=== PATIENT | male | born 1990 | race African-American/Black ===

== ENCOUNTER 2016-04-14 09:12 | Emergency (ER) | payer SELFPAY ==
[~2016-04-14] VITALS: Ht 175.3 cm; Wt 81.6 kg
[~2016-04-14 09:12] MED LIST: DOXYCYCLINE MO100 MG ORAL; GENOPTIC O.O1 APPLIC BOTH EYES; METRONIDAZOLE500 MG ORAL; NKM; NORCO 5-325 TA1 EACH ORAL; ZITHROMAX250 MG ORAL
[2016-04-14 09:29] VITALS: BP 122/77
[2016-04-14] MEDS ORDERED: Azithromycin 250mg tab ORAL ONE (09:45)
[2016-04-14] MEDS ORDERED: SUPRAX400 M1 PO (09:52)
[2016-04-14 10:00] VITALS: BP 120/76
--- NOTE | 2016-04-15 17:34 | Emergency Room Report ---
History of Present Illness General Chief Complaint: Male Urogenital Problems Source: Patient Present Illness HPI Patient presents with complaints of discharge Reports that he has noticed some clear discharge recently he has had gonorrhea in the past Reports that he is resistant to Rocephin And requires Suprax Denies any abdominal pain denies any fevers or chills Denies any lymphadenopathy denies any testicular pain denies any vomiting or diarrhea Allergies: Coded Allergies: PEANUT (Unverified Allergy, Intermediate, 08/17/15) Uncoded Allergies: PEANUTS (Allergy, Intermediate, 08/17/15) Patient History Past Medical History: see triage record Pertinent Family History: none Reviewed Nursing Documentation: PMH: Agreed, PSxH: Agreed Nursing Documentation-PMH Past Medical History: No Stated History Review of Systems All Other Systems: negative except mentioned in HPI Physical Exam Vital Signs Date Time Temp Pulse Resp B/P Pulse Ox O2 Delivery O2 Flow Rate FiO2 04/14/16 09:29 98.4 93 18 122/77 99 Room Air Sp02 EP Interpretation: reviewed, normal General Appearance: well appearing, no apparent distress Head: normocephalic, atraumatic Eyes: bilateral eye EOMI, bilateral eye PERRL ENT: hearing grossly normal, normal pharynx, TMs + canals normal, uvula midline Neck: supple, thyroid normal Gastrointestinal: soft, no mass Genitourinary: other - Uncircumcised, testicles nontender Musculoskeletal: normal inspection Neurologic: alert, oriented x3 Skin: no rash, warm/dry Lymphatic: no adenopathy Medical Decision Making Diagnostic Impression: Primary Impression: Urethritis ER Course Patient was provided with suprax per his request At this time he understands the need for close followup with STD clinic and primary physician And will return with any changes in symptoms Last Vital Signs Date Time Temp Pulse Resp B/P Pulse Ox O2 Delivery O2 Flow Rate FiO2 04/14/16 10:00 98.4 88 16 120/76 100 Room Air Status: improved Disposition: HOME, SELF-CARE Condition: Stable Scripts Cefixime (SUPRAX) 400 Mg Capsule 400 MG PO ONCE for 1 Day, CAP Prov: MARY CAM D.OIsrrael 04/14/16 Referrals: NOT CHOSEN [facility]/,REFERRING (PCP) Patient Instructions: Urethritis, Adult Additional Instructions: Patient is provided with the discharge instructions notified to follow up with primary doctor in the next 2-3 days otherwise return to the er with any worsening symptoms. MARY CAM D.O. Apr 15, 2016 17:34
== END 2016-04-14 10:00 | disposition home or self-care (01) ==
LOC: EMR 09:53
DX: N34.2 Other urethritis (principal); Z91.010 Allergy to peanuts
CPT/HCPCS: 99282

== ENCOUNTER 2016-11-03 21:07 | Emergency (ER) | payer MEDICAID ==
[~2016-11-03] VITALS: Ht 175.3 cm; Wt 77.1 kg
[~2016-11-03 21:07] MED LIST changes: +SUPRAX400 M1 PO
[2016-11-03 21:30] VITALS: BP 130/74
--- NOTE | 2016-11-03 21:37 | Emergency Room Report ---
History of Present Illness General Chief Complaint: Male Urogenital Problems Source: Patient Present Illness HPI Is a 26-year-old male with no significant past medical history. He presents with chief complaint of possible STD. He said that he has an STD for the last 2 years. Has been on multiple antibiotics. He's been here at least 6 times her ready. This does not including outside hospital. He requested antibiotics. He has no discharge. Denies any fever chills denies any nausea vomiting. No recent sexual activity. Also complaining of generalized pain and headache. Nothing made it better. Nothing made it worse. Allergies: Coded Allergies: PEANUT (Unverified Allergy, Intermediate, 08/17/15) Uncoded Allergies: PEANUTS (Allergy, Intermediate, 08/17/15) Patient History Past Medical History: see triage record, old chart reviewed Past Surgical History: other Pertinent Family History: none Social History: Denies: smoking Immunizations: other Reviewed Nursing Documentation: PMH: Agreed, PSxH: Agreed Nursing Documentation-PM Past Medical History: No Stated History Review of Systems Eye: Denies: blurred vision, eye pain ENT: Denies: ear pain, nose congestion, throat swelling Respiratory: Denies: cough, shortness of breath Cardiovascular: Denies: chest pain, palpitations Gastrointestinal: Denies: abdominal pain, diarrhea, nausea, vomiting Musculoskeletal: Denies: back pain, joint pain Skin: Denies: rash Neurological: Denies: headache, numbness Endocrine: Denies: increased thirst, increased urine Hematologic/Lymphatic: Denies: easy bruising All Other Systems: negative except mentioned in HPI Physical Exam Vital Signs Date Time Temp Pulse Resp B/P Pulse Ox O2 Delivery O2 Flow Rate FiO2 11/03/16 21:15 99.7 84 20 127/76 98 Room Air vitals normal Sp02 EP Interpretation: reviewed, normal General Appearance: well appearing, no apparent distress, alert Head: normocephalic, atraumatic Eyes: bilateral eye EOMI, bilateral eye PERRL ENT: hearing grossly normal, normal pharynx Neck: full range of motion, supple, no meningismus Respiratory: chest non-tender, lungs clear, normal breath sounds Cardiovascular #1: regular rate, rhythm, no murmur Gastrointestinal: normal bowel sounds, non tender, no mass, no organomegaly, no bruit, non-distended Genitourinary: no CVA tenderness, no vertebral tenderness, scrotum normal, other - Mild stricture of urethra Musculoskeletal: back normal, gait/station normal, normal range of motion Neurologic: alert, oriented x3 Psychiatric: mood/affect normal Skin: warm/dry Medical Decision Making Diagnostic Impression: Primary Impression: Abnormal urogenital findings ER Course Patient presents with complaint of possible STD. At this point, I think this more psychogenic than anything else. His dysuria may be secondary to urethral stricture. I told patient I would not treat until we have confirmation. We'll send a culture for gonorrhea and Chlamydia. I do not want to cause resistant by needlessly treating. Last Vital Signs Date Time Temp Pulse Resp B/P Pulse Ox O2 Delivery O2 Flow Rate FiO2 11/03/16 21:15 99.7 84 20 127/76 98 Room Air Status: unchanged Disposition: HOME, SELF-CARE Condition: Stable Additional Instructions: Followup your DrIsrrael in 7 days. Stop going to different hospital for antibiotics. This will create resistant. We will call you if cultures are positive. Return if symptom worsen. JANINA RENTERIA M.D. Nov 03, 2016 21:37
[2016-11-03 21:40] VITALS: BP 130/74
== END 2016-11-03 21:45 | disposition home or self-care (01) ==
LOC: EMR 21:45
DX: N35.9 Urethral stricture, unspecified (principal); R51 Headache; Z91.010 Allergy to peanuts
CPT/HCPCS: 87491; 87590; 99283